=== PATIENT | female | born 1995 | race Caucasian/White ===

== ENCOUNTER → 2016-06-30 | Outpatient (CLI) | payer BC, MEDICAID ==
[~2016-06-30] MED LIST: ACET50TA PO; IBUP80TA PO; PRENTAB9 PO; ZANTTAB PO
--- NOTE | 2016-06-30 16:15 | REP ---
Bilateral inguinal soft-tissue ultrasound: History: Right inguinal pain. Right inguinal hernia suspected on clinical exam. Findings: Scanning of the inguinal canals is performed bilaterally with and without Valsalva. No inguinal hernias seen on either side by ultrasound. There are normal-appearing inguinal lymph nodes bilaterally. The largest lymph node on the right measures 14 x 6 x 5 mm. That on the left measures 14 x 7 x 7 mm. Normal right ovary is visible measuring 2.6 x 2.6 x 2.4 cm. Impression: No hernia, cyst or mass seen. Signed by Andrea Felipe MD 06/30/2016 04:35 P
== END ==
LOC: M RAD 14:36
PROVIDERS: ATTEND Physician Assistant
DX: M25.851 Other specified joint disorders, right hip (principal)

== ENCOUNTER → 2016-08-29 | Outpatient (CLI) | payer BC, MEDICAID ==
[~2016-08-29] MED LIST changes: +GASTROGRAFIN SOLUTION 30ML (Q9963) As Ordered ONE; +ISOVUE-370 76% 100ML VIAL (Q9967) As Ordered ONE
--- NOTE | 2016-08-29 16:07 | REP ---
CT abdomen and pelvis with IV and oral contrast: History: Intermittent severe right lower quadrant abdominal pain. Comparison CT study is from 02/09/2005. CT contrast dose: 100 mL of Isovue [address] findings: There is a pectus excavatum deformity seen. The pectus deformity is more prominent at the level of the right costal margin than at the level of the xyphoid or left costal margin. This asymmetry is somewhat more pronounced than on the 02/09/2005 prior study. The lung bases are clear. The liver and the spleen are normal in size and homogeneous in texture. The gallbladder and pancreas are unremarkable. No adrenal lesion is seen on either side. The kidneys enhance symmetrically and are morphologically intact. No retroperitoneal mass or adenopathy is seen. A normal appendix is seen in the right lower quadrant mid pelvis. A septate uterus is seen possibly bicornuate. No adnexal mass or free fluid is seen. A vaginal tampon is noted in place. Small and large intestinal bowel loops are unremarkable. Impression: Septate morphology to the uterus possibly bicornuate. Pectus excavatum. Otherwise negative CT study of the abdomen and pelvis with IV and oral contrast. Signed by Andrea Felipe MD 08/29/2016 05:19 P
== END ==
LOC: M RAD 12:32
PROVIDERS: ATTEND Physician Assistant
DX: R10.31 Right lower quadrant pain (principal)
CPT/HCPCS: 74177; Q9963; Q9967

== ENCOUNTER 2017-01-10 23:35 | Emergency (ER) | payer BC, MEDICAID ==
[~2017-01-10] VITALS: Ht 172.7 cm; Wt 67.3 kg
[~2017-01-10 23:35] MED LIST changes: -GASTROGRAFIN SOLUTION 30ML (Q9963) As Ordered ONE; -ISOVUE-370 76% 100ML VIAL (Q9967) As Ordered ONE
[2017-01-10 23:42] VITALS: BP 154/75
[2017-01-10] MEDS ORDERED: SERO1TAB PO (23:50)
[2017-01-10] MEDS ORDERED: ATIV1TAB10 PO (23:50)
[2017-01-10] MEDS ORDERED: MULT1CHW39 PO (23:50)
[2017-01-11] MEDS ORDERED: MORPHINE 10 MG/ML 1ML VIAL IM ONE (00:15)
[2017-01-11] MEDS ORDERED: OXYCODONE/APAP 5MG/325MG(BULK FOR ED) 1 TABLET PO ONE (01:30)
[2017-01-11] MEDS ORDERED: PERC5TAB12 PO (01:36)
--- NOTE | 2017-01-11 21:40 | REP ---
LEFT FOOT, AP AND LATERAL: AP and lateral views of the left foot are performed. There is a nondisplaced transverse fracture at the base of the 5th metatarsal. No other acute fracture or dislocation is seen. IMPRESSION: Nondisplaced fracture, base of 5th metatarsal. Signed by Inocencio Pickett MD 01/12/2017 01:09 P
--- NOTE | 2017-01-11 21:41 | REP ---
LEFT ANKLE: AP and lateral views of the left ankle are performed. There is a nondisplaced fracture at the base of the 5th metatarsal. No other acute fracture or dislocation is seen. IMPRESSION: Nondisplaced fracture base of the 5th metatarsal. Signed by Inocencio Pickett MD 01/12/2017 01:09 P
== END 2017-01-11 01:53 | disposition home or self-care (01) ==
LOC: M ED 23:35
DX: S92.355A Nondisplaced fracture of fifth metatarsal bone, left foot, initial encounter for closed fracture (principal); X50.1XXA Overexertion from prolonged static or awkward postures, initial encounter; Y92.9 Unspecified place or not applicable; Y93.89 Activity, other specified; Y99.9 Unspecified external cause status; Z79.899 Other long term (current) drug therapy

== ENCOUNTER → 2018-01-26 | Outpatient (CLI) | payer BC, MEDICAID ==
[2018-01-26 13:47] LABS: HCG, SERUM QUANTITATIVE 1584 MIU/ML
== END ==
LOC: M SMT 10:42
DX: N91.1 Secondary amenorrhea (principal)
CPT/HCPCS: 84702

== ENCOUNTER → 2018-01-28 | Outpatient (CLI) | payer BC, MEDICAID ==
[2018-01-29 08:30] LABS: HCG, SERUM QUANTITATIVE 3984 MIU/ML
== END ==
LOC: M WUC 11:13
DX: N91.1 Secondary amenorrhea (principal)
CPT/HCPCS: 84702

== ENCOUNTER 2018-02-21 19:18 | Emergency (ER) | payer BC, MEDICAID ==
[2018-02-21] MEDS: NS 1,000 ML IV (20:22)
[2018-02-21] MEDS: MORPHINE 2 MG/ML 1ML SYRINGE (J2270) IV (20:23)
[2018-02-21 20:38] LABS: BASO % 0.3 % (0.0-1.0); EOS # 0.2 10^3/uL (0.0-0.50); EOS % 1.8 % (0.0-3.0); HEMATOCRIT 36.6 % (36.0-47.0); HEMOGLOBIN 12.3 g/dl (12.0-15.5); IMMATURE GRANULOCYTE % 0.3 % (0-3.0); LYMPH # 2.5 10^3/uL (1.5-6.5); LYMPH % 25.9 % (24.0-44.0); MEAN CORPUSCULAR HEMOGLOBIN 29.7 pg (27.0-33.0); MEAN CORPUSCULAR HGB CONC 33.6 g/dl (32.0-36.5); MEAN CORPUSCULAR VOLUME 88.4 fl (80.0-96.0); MONO # 0.5 10^3/uL (0.0-0.8); MONO % 5.1 % (0.0-5.0); NEUTROPHILS # 6.4 10^3/uL (1.8-7.7); NEUTROPHILS % 66.6 % (36.0-66.0); PLATELET COUNT, AUTOMATED 253 10^3/uL (150-450); RED BLOOD COUNT 4.14 10^6/uL (4.00-5.40); RED CELL DISTRIBUTION WIDTH 13.8 % (11.5-14.5); WHITE BLOOD COUNT 9.6 10^3/uL (4.0-10.0)
[2018-02-21 21:06] LABS: ALBUMIN 3.6 GM/DL (3.2-5.2); ALBUMIN/GLOBULIN RATIO 0.95 (1.00-1.93); ALKALINE PHOSPHATASE 55 U/L (45-117); ALT/SGPT 17 U/L (12-78); AMYLASE 76 U/L (25-115); AST/SGOT 10 U/L (7-37); BILIRUBIN,DIRECT 0.1 MG/DL (0.0-0.2); BILIRUBIN,TOTAL 0.2 MG/DL (0.2-1.0); LIPASE 175 U/L (73-393); TOTAL PROTEIN 7.4 GM/DL (6.4-8.2)
[2018-02-21 21:19] LABS: ANION GAP 9 MEQ/L (8-16); BLOOD UREA NITROGEN 7 MG/DL (7-18); CALCIUM LEVEL 8.7 MG/DL (8.5-10.1); CARBON DIOXIDE LEVEL 25 MEQ/L (21-32); CHLORIDE LEVEL 108 MEQ/L (98-107); CREATININE FOR GFR 0.55 MG/DL (0.55-1.30); GLOMERULAR FILTRATION RATE > 60.0 (>60); GLUCOSE, FASTING 88 MG/DL (70-100); HCG, SERUM QUANTITATIVE 160073 MIU/ML; POTASSIUM SERUM 3.7 MEQ/L (3.5-5.1); SODIUM LEVEL 142 MEQ/L (136-145)
[2018-02-21 22:04] LABS: AMORPHOUS SEDIMENT RFX SMALL (NEGATIVE); KETONE, URINE AUTO RFX NEGATIVE (NEGATIVE); LEUKOCYTE ESTERASE UR AUTO RFX NEGATIVE (NEGATIVE); NITRITE, URINE AUTO RFX NEGATIVE (NEGATIVE); RBC, URINE AUTO RFX 2 /HPF (0-3); SPECIFIC GRAVITY UR AUTO RFX 1.012 (1.002-1.035); SQUAM EPITHELIAL CELL UR AURFX 1 /HPF (0-6); WBC, URINE AUTO RFX 0 /HPF (0-3)
[2018-02-21] MEDS: ACETAMINOPHEN 325 MG TAB PO (22:45)
[2018-02-21] MEDS: PROMETHAZINE 25 MG TAB PO (22:45)
== END 2018-02-21 22:53 | disposition home or self-care (01) ==
LOC: M ED 19:18
DX: O26.891 Other specified pregnancy related conditions, first trimester (principal); Z3A.01 Less than 8 weeks gestation of pregnancy
CPT/HCPCS: J2270

== ENCOUNTER → 2018-02-24 | Outpatient (CLI) | payer BC, MEDICAID ==
[2018-02-24 17:34] LABS: BASO % 0.1 % (0.0-1.0); EOS # 0.2 10^3/uL (0.0-0.50); EOS % 1.9 % (0.0-3.0); HEMATOCRIT 36.7 % (36.0-47.0); HEMOGLOBIN 12.2 g/dl (12.0-15.5); IMMATURE GRANULOCYTE % 0.4 % (0-3.0); LYMPH # 2.1 10^3/uL (1.5-6.5); LYMPH % 25.5 % (24.0-44.0); MEAN CORPUSCULAR HEMOGLOBIN 29.9 pg (27.0-33.0); MEAN CORPUSCULAR HGB CONC 33.2 g/dl (32.0-36.5); MONO # 0.5 10^3/uL (0.0-0.8); MONO % 6.1 % (0.0-5.0); NEUTROPHILS # 5.3 10^3/uL (1.8-7.7); PLATELET COUNT, AUTOMATED 268 10^3/uL (150-450); RED BLOOD COUNT 4.08 10^6/uL (4.00-5.40); RED CELL DISTRIBUTION WIDTH 13.9 % (11.5-14.5)
[2018-02-24 18:30] LABS: CHLAMYDIA DNA AMPLIFICATION NEGATIVE (NEGATIVE); GC DNA AMPLIFICATION NEGATIVE (NEGATIVE)
[2018-02-26 13:51] LABS: RUBELLA IgG QUALITATIVE IMMUNE (IMMUNE)
[2018-02-26 13:56] LABS: HBsAg Prenatal NEGATIVE (NEGATIVE)
[2018-02-26 14:21] LABS: HEPATITIS C VIRUS ABY INDEX 0.1 INDEX (<0.8)
[2018-02-26 14:21] LABS: HIV 1&2 SCREEN CENTAUR NEGATIVE (NEGATIVE)
== END ==
LOC: M WUC 14:50
DX: Z34.81 Encounter for supervision of other normal pregnancy, first trimester (principal); Z3A.09 9 weeks gestation of pregnancy; Z36.89 Encounter for other specified antenatal screening
CPT/HCPCS: 86762

== ENCOUNTER → 2018-03-02 | Outpatient (CLI) | payer BC, MEDICAID | LOC: M SMT 10:17 | DX: Z34.81 Encounter for supervision of other normal pregnancy, first trimester (principal); Z13.79 Encounter for other screening for genetic and chromosomal anomalies | CPT/HCPCS: 36415 ==

== ENCOUNTER → 2018-04-28 | Outpatient (CLI) | payer BC, OTHER, MEDICAID | LOC: M RAD 12:11 | DX: O34.02 Maternal care for unspecified congenital malformation of uterus, second trimester (principal); Z36.89 Encounter for other specified antenatal screening; Z3A.18 18 weeks gestation of pregnancy | CPT/HCPCS: 76811 ==

== ENCOUNTER → 2018-05-24 | Outpatient (CLI) | payer BC, OTHER | LOC: M RAD 12:19 | DX: O34.02 Maternal care for unspecified congenital malformation of uterus, second trimester (principal); Q51.3 Bicornate uterus; Z3A.21 21 weeks gestation of pregnancy | CPT/HCPCS: 76816 ==

== ENCOUNTER → 2018-06-30 | Outpatient (CLI) | payer BC, OTHER ==
[~2018-06-30] MED LIST changes: +ATIV1TAB10 PO; +MULT1CHW39 PO; +PERC5TAB12 PO; +SERO1TAB PO
[2018-06-30 13:23] LABS: HEMOGLOBIN 11.8 g/dl (12.0-15.5); MEAN CORPUSCULAR HGB CONC 33.7 g/dl (32.0-36.5); MEAN CORPUSCULAR VOLUME 94.9 fl (80.0-96.0); PLATELET COUNT, AUTOMATED 234 10^3/uL (150-450); RED BLOOD COUNT 3.69 10^6/uL (4.00-5.40); WHITE BLOOD COUNT 7.7 10^3/uL (4.0-10.0)
== END ==
LOC: M SMT 10:12
PROVIDERS: ATTEND Advanced Practice Midwife
DX: O34.02 Maternal care for unspecified congenital malformation of uterus, second trimester (principal)

== ENCOUNTER → 2018-09-03 | Outpatient (REF) | payer BC, OTHER | LOC: M LAB REF 17:12 | PROVIDERS: ATTEND Advanced Practice Midwife | DX: O99.89 Other specified diseases and conditions complicating pregnancy, childbirth and the puerperium (principal); Z3A.00 Weeks of gestation of pregnancy not specified ==

== ENCOUNTER 2018-09-14 11:29 | Inpatient (IN) | payer BC, OTHER ==
[2018-09-14] VITALS (60 sets, daily range): BP systolic 116–203; BP diastolic 56–139
[~2018-09-14 11:29] MED LIST changes: -ACET50TA PO; +MAPA500T17 PO
[2018-09-14] MEDS ORDERED: MAG Sulf (L&D) 4 GM/100 ML 4 GM in APPROPRIATE DILUENT 1 EA IV ONE (11:45)
[2018-09-14] MEDS ORDERED: OXYTOCIN DRIP 30 UNITS in APPROPRIATE DILUENT 1 EA IV SCH ×2 (11:45→23:42)
[2018-09-14] MEDS ORDERED: MAG Sulf (OBGYN) 20GM/500ML 20,000 MG in APPROPRIATE DILUENT 1 EA IV SCH (12:00)
[2018-09-14] MEDS ORDERED: ACETAMINOPHEN TAB 650MG DOSE (2X325MG) PO PRN (12:30)
[2018-09-14] MEDS ORDERED: LR 1,000 ML IV SCH (12:45)
[2018-09-14 12:49] LABS: HEMATOCRIT 35.3 % (36.0-47.0); MEAN CORPUSCULAR HEMOGLOBIN 30.5 pg (27.0-33.0); MEAN CORPUSCULAR VOLUME 89.8 fl (80.0-96.0); PLATELET COUNT, AUTOMATED 236 10^3/uL (150-450); RED BLOOD COUNT 3.93 10^6/uL (4.00-5.40); WHITE BLOOD COUNT 5.3 10^3/uL (4.0-10.0)
[2018-09-14 13:14] LABS: TOTAL PROTEIN,RANDOM URINE 99.2 MG/DL (0.0-12.0)
[2018-09-14 13:14] LABS: ALT/SGPT 16 U/L (12-78); BILIRUBIN,TOTAL 0.3 MG/DL (0.2-1.0); CREATININE FOR GFR 0.51 MG/DL (0.55-1.30); GLOMERULAR FILTRATION RATE > 60.0 (>60); LDH LACTATE DEHYDROGENASE 236 U/L (84-246); URIC ACID 4.3 MG/DL (2.6-6.0)
--- NOTE | 2018-09-14 13:14 | HPE ---
DATE OF ADMISSION: 09/14/2018 Nusrat is a 1, para 1-0-1-1, at 38 weeks gestation with an expected date of confinement (EDC) of 09/28/2017 based on first trimester ultrasound. She presents to labor and delivery today after routine appointment with severe range pressures noted at that appointment. She reported a headache that has been times two days, not resolved by usual [id number] medications. She does report some blurry vision on and off, currently none. She reports some minimal cramping. Denies vaginal bleeding and leakage of fluid. The fetus has been active. care was initiated at [facility] in the first trimester. Her course was complicated by known bicornuate uterus and a history of anxiety and now recent onset of hypertension today. OBSTETRICAL HISTORY: May 2012 - 37 weeks, spontaneous vaginal delivery, 7 pound 5 ounce female. January 2013 - spontaneous miscarriage. OBSTETRIC LABS: O positive. Antibody screen negative. Rubella immune. VDRL nonreactive. Urine culture no growth. Hepatitis B surface antigen negative. HIV negative. Hepatitis C antibody nonreactive. Gonorrhea and chlamydia negative. She did have a cell free DNA testing and noted to be low risk for aneuploidy with a male fetus. Her glucose test was normal at 94. Her GBS is negative. PAST MEDICAL HISTORY: Anxiety, left cystic breast, childhood varicella. SURGERIES: Dilation and curettage (D and C) 2012 following her miscarriage. FAMILY HISTORY: Anxiety and depression. SOCIAL HISTORY: The patient is single, however, the father of the baby is at bedside and supportive as well as several family members. She is a nonsmoker. Denies alcohol and drug use. No history of any sexually transmitted infections. Denies history of abuse - physical, sexual and emotional. ALLERGIES: No known drug allergies. CURRENT MEDICATIONS: Include vitamins, Zantac [id number], Ambien for sleep and Fioricet for headaches. OBJECTIVE: In the office, her blood pressure was in the severe range 168/102. Blood pressure since arrival has been still elevated, but more reasonable at 143/82. Temperature is 97.9, pulse 100 and respirations are 18. She is alert and oriented times three. heart rate is 160 with moderate variability, positive accelerations, no decelerations. Contractions every 2-3 minutes. They are mild. Sterile Vaginal Exam: Performed in the office, 2-3 cm dilated, 80% effaced, minus two station, mid position, positive bloody show. Her abdomen is gravid, cephalic presentation. Estimated weight 7-1/2 pounds. ASSESSMENT: Intrauterine at 38 weeks. heart rate category one. Severe range hypertension. Headache. PLAN: Admit the patient to labor and delivery for induction of labor. Labs - CBC, pre-eclamptic profile, type and screen, spot urine. Start magnesium sulfate 4 grams loading dose and then 2 grams per hour. Plan to keep IV fluids at 125 mL total. Clear liquid diet at this time. Continuous monitoring. IV Pitocin for labor induction. I did review risks and benefits to induction of labor including intolerance to labor, increased risk of and reviewed risks and benefits and expected management. The patient and her family have had all their questions answered and do desire induction of labor. The patient will have an epidural when she is uncomfortable. The plan is for assisted rupture of membranes when she is in active labor. Dr. Polanco is aware of the patient's status and arrival to labor and delivery and is consultation for this plan. I do anticipate labor and a spontaneous vaginal delivery.
[2018-09-14] MEDS ORDERED: FENTANYL 2MCG/ML ROPIVACAINE 0.2% IN 0.9% NACL 100ML IVBAG As Ordered ONE (17:45)
[2018-09-14] MEDS ORDERED: EPIDURAL COMMENT XX SCH (18:45)
[2018-09-14] MEDS ORDERED: EPIDURAL/PCA KEYS XX PRN (18:45)
[2018-09-14] MEDS ORDERED: FENTANYL/ROPIVACAINE/NACL BAG 100 ML EPIDURAL SCH (18:45)
[2018-09-14] MEDS ORDERED: NALOXONE INJ 0.4 MG/1 ML VIAL (J2310) IV PRN (18:45)
[2018-09-14] MEDS ORDERED: ePHEDrine SULFATE 25 MG/5 ML(5MG/ML) SYRINGE IV PRN (18:45)
[2018-09-14] MEDS ORDERED: ONDANSETRON 4MG/2ML VIAL (J2405) IV PRN (18:45)
[2018-09-14] MEDS ORDERED: REFRIGERATOR IV KEYS XX PRN (18:45)
[2018-09-14] MEDS ORDERED: diphenhydrAMINE INJ 50MG/ML VIAL (J1200) IV PRN (18:45)
[2018-09-14] MEDS ORDERED: RANI1TAB6 PO (19:11)
[2018-09-14] MEDS ORDERED: FIOR1CAP PO (19:11)
[2018-09-14] MEDS: FAMOTIDINE 20 MG TAB PO SCH (19:32)
[2018-09-14] MEDS ORDERED: CALCIUM CARBONATE 500 MG CHEW U/D PO PRN (20:45)
[2018-09-14] MEDS ORDERED: DOCUSATE SODIUM 100 MG CAP PO PRN (23:45)
[2018-09-14] MEDS ORDERED: MEASLES,MUMPS,RUBELLA VACCINE INJ (MMR-II) (90707) SC SCH (23:45)
[2018-09-14] MEDS ORDERED: RHOGAM 300 MCG (1500 IU) INJ (J2790) IM SCH (23:45)
[2018-09-14] MEDS ORDERED: METHYLERGONOVINE MALEATE 0.2 MG TAB PO PRN (23:45)
[2018-09-15] VITALS (13 sets, daily range): BP systolic 109–150; BP diastolic 53–74
[2018-09-15] MEDS: IBUPROFEN 800 MG TAB PO PRN ×2 (00:02→07:44)
--- NOTE | 2018-09-15 06:58 | DN ---
DATE OF : 09/14/2018 Nusrat is a 22-year-old, 3, para 2-0-1-2 now, who was admitted to labor and delivery for preeclampsia. Magnesium sulfate and IV Pitocin was started. Labor did ensue. She used an epidural for her labor coping. She progressed to full dilation at 2244. She pushed to a normal spontaneous vaginal delivery of a live male in occiput anterior (OA) position with restitution to right occiput transverse (ROT) position at 2253. There was a nuchal cord times one loose reduced manually at the time of delivery. Shoulders and corpus delivered spontaneously. The male was placed on the maternal abdomen crying and active. Mouth and nares were bulb suctioned. The cord was clamped times two and cut by the father of the baby under my direction. A spontaneous expulsion of an intact placenta with three-vessel cord by Felipe mechanism was at 2309. Uterine hemostasis achieved with IV Pitocin rapid infusion and uterine fundal massage. Estimated blood loss 300 mL. Perineum and vagina inspected and noted have a first degree midline laceration. The laceration was repaired with #3-0 Rapide in the usual fashion. The male weighed 8 pounds 2 ounces, 3690 grams, with Apgars 9 and 9. Mom is going to bottle feed her son and the family have named him Gerardo. At the close of delivery, lap counts, needle counts and instrument counts were correct and verified.
[2018-09-15] MEDS: FAMOTIDINE 20 MG TAB PO SCH ×2 (07:43→20:27)
[2018-09-15] MEDS ORDERED: ACETAMINOPHEN 500 MG TAB PO PRN (07:45)
[2018-09-15] MEDS: PRENATAL VITAMINS CHEWABLE TABLET PO SCH (09:28)
[2018-09-15] MEDS ORDERED: SLF 3 ML SYR IV PRN (10:15)
[2018-09-15] MEDS: SLF 3 ML SYR IV SCH ×2 (14:53→20:33)
[2018-09-16] MEDS: DIBUCAINE 1% OINTMENT 30GM TOP PRN ×2 (00:44→11:42)
[2018-09-16] MEDS: IBUPROFEN 800 MG TAB PO PRN ×2 (00:44→08:46)
[2018-09-16 06:00] VITALS: BP 113/59
[2018-09-16] MEDS: SLF 3 ML SYR IV SCH (06:00)
[2018-09-16] MEDS: FAMOTIDINE 20 MG TAB PO SCH (06:21)
[2018-09-16] MEDS ORDERED: IBUP-1114 PO (08:19)
[2018-09-16] MEDS ORDERED: MAPA500T2 PO (08:20)
[2018-09-16] MEDS: PRENATAL VITAMINS CHEWABLE TABLET PO SCH (08:45)
== END 2018-09-16 13:20 | disposition home or self-care (01) | DRG 560 ==
LOC: M LDI 11:29 → M OBS 09-15 11:26
PROVIDERS: ADMIT Advanced Practice Midwife; ATTEND Advanced Practice Midwife
PROC: 10E0XZZ Delivery of Products of Conception, External Approach (ICD-10-PCS; principal; 2018-09-14)
PROC: 0HQ9XZZ Repair Perineum Skin, External Approach (ICD-10-PCS; 2018-09-14)
PROC: 10907ZC Drainage of Amniotic Fluid, Therapeutic from Products of Conception, Via Natural or Artificial Opening (ICD-10-PCS; 2018-09-14)
PROC: 3E033VJ Introduction of Other Hormone into Peripheral Vein, Percutaneous Approach (ICD-10-PCS; 2018-09-14)
DX: O14.14 Severe pre-eclampsia complicating childbirth (principal); Z3A.38 38 weeks gestation of pregnancy; O69.81X0 Labor and delivery complicated by cord around neck, without compression, not applicable or unspecified; O70.0 First degree perineal laceration during delivery; Z37.0 Single live birth

== ENCOUNTER → 2019-02-22 | Outpatient (REF) | payer BC, OTHER ==
[~2019-02-22] MED LIST changes: +FIOR1CAP PO; +IBUP-1114 PO; +MAPA500T2 PO; -MULT1CHW39 PO; +MULT200T7 PO; +RANI-356 PO
== END ==
LOC: M LAB REF 13:49
PROVIDERS: ATTEND Advanced Practice Midwife
DX: Z12.4 Encounter for screening for malignant neoplasm of cervix (principal)

== ENCOUNTER → 2019-04-05 | Outpatient (REF) | payer BC, OTHER | LOC: M LAB REF 17:14 | PROVIDERS: ATTEND Advanced Practice Midwife | DX: R87.615 Unsatisfactory cytologic smear of cervix (principal) ==

== ENCOUNTER → 2020-02-21 | Outpatient (CLI) | payer BC, OTHER ==
[~2020-02-21] MED LIST changes: -RANI-356 PO; +RANI-397 PO
--- NOTE | 2020-03-09 14:56 | REP ---
THORACIC SPINE SERIES: CLINICAL: Back pain. COMPARISON: 11/29/18 TECHNIQUE: AP, lateral, swimmer's views of the thoracic spine. FINDINGS: Alignment and kyphosis is maintained. Vertebral bodies are intact. No acute fracture/compression injury or subluxation. Paravertebral soft tissues are normal. IMPRESSION: Normal thoracic spine radiographs. MTDD
--- NOTE | 2020-03-09 14:57 | REP ---
LUMBOSACRAL SERIES: CLINICAL: Back pain. TECHNIQUE: AP, lateral, bilateral oblique and coned down views of the lumbosacral spine. COMPARISON: 11/29/18 FINDINGS: Alignment and lordosis maintained. Vertebral bodies intact. No acute fracture/compression injury or subluxation. No spondylolysis or spondylolisthesis. IMPRESSION: Normal age appropriate lumbosacral spine radiographs. [facility]
== END ==
LOC: M WUC 10:05
PROVIDERS: ATTEND Physician Assistant
DX: M54.5 Low back pain (principal); M54.6 Pain in thoracic spine

== ENCOUNTER → 2020-04-11 | Outpatient (CLI) | payer OTHER ==
--- NOTE | 2020-04-11 12:45 | REPVR ---
PROCEDURE INFORMATION: Exam: MR Lumbar Spine Without Contrast. Exam date and time: 04/11/2020 11:37 AM Age: 24 years old Clinical indication: Low back pain; Additional info: Ddd lumbar region TECHNIQUE: Imaging protocol: Multiplanar magnetic resonance images of the lumbar spine without intravenous contrast. COMPARISON: CR SPINE LS COMPLETE 02/21/2020 10:19 AM FINDINGS: Vertebrae: There is no fracture or listhesis. Marrow signal is within normal limits. Spinal cord: Normal signal. No cord compression. L1-L2: No significant disc disease. No significant spinal canal stenosis. No neural foraminal stenosis. L2-L3: No significant disc disease. No significant spinal canal stenosis. No neural foraminal stenosis. L3-L4: There is shallow disc bulging. There is mild facet hypertrophy. The spinal canal and neural foramina are patent. L4-L5: There is shallow disc bulging. There is mild facet hypertrophy. The spinal canal and neural foramina are patent. L5-S1: There is shallow disc bulging. There is mild facet hypertrophy. The spinal canal and neural foramina are patent. Soft tissues: Unremarkable. IMPRESSION: Mild degenerative disc disease and spondylosis without canal or neural foraminal compromise. Electronically signed by: Opal Munguia On 04/11/2020 12:45:49 PM
== END ==
LOC: M RAD 10:30
PROVIDERS: ATTEND Physician Assistant
DX: M51.37 Other intervertebral disc degeneration, lumbosacral region (principal)

== ENCOUNTER → 2020-08-08 | Outpatient (CLI) | payer OTHER ==
--- NOTE | 2020-08-09 04:12 | REP ---
INDICATION: PAIN COMPARISON: None. TECHNIQUE: AP, lateral, bilateral oblique views right foot. FINDINGS: There is no definite evidence for acute fracture or dislocation. Surrounding soft tissues are unremarkable. No subcutaneous emphysema or radiodense foreign body. Oblique and lateral views cannot distinguish between bipartite sesamoid bone versus nondisplaced fracture of the sesamoid underlying the 1st metatarsal head. 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 IMPRESSION: No definite acute fracture. As above. <Electronically signed by Felix Urias > 08/09/20 [id number]
== END ==
LOC: M WUC 14:28
PROVIDERS: ATTEND Physician Assistant
DX: M79.671 Pain in right foot (principal)

== ENCOUNTER → 2020-10-26 | Outpatient (REF) | payer BC | LOC: M SFHCWAGY 10:06 | PROVIDERS: ATTEND Advanced Practice Midwife | DX: Z12.4 Encounter for screening for malignant neoplasm of cervix (principal); Z77.9 Other contact with and (suspected) exposures hazardous to health ==

== ENCOUNTER → 2021-01-14 | Outpatient (CLI) | payer OTHER ==
--- NOTE | 2021-01-14 12:25 | REP ---
INDICATION: SPRAIN. COMPARISON: Comparison portable chest x-ray February 09, 2005.. TECHNIQUE: Five views including PA chest. FINDINGS: PA chest radiograph shows no evidence of pneumothorax or hydrothorax. Mediastinum is not widened. Heart size is normal. Pulmonary vasculature is not increased. Multiple views of the left ribcage show no evidence of rib fracture or bony destructive lesion. IMPRESSION: Negative left rib series. <Electronically signed by Bebeto Felipe > 01/14/21 [id number]
== END ==
LOC: M WUC 10:37
PROVIDERS: ATTEND Physician Assistant
DX: S23.41XA Sprain of ribs, initial encounter (principal); X58.XXXA Exposure to other specified factors, initial encounter; Y92.89 Other specified places as the place of occurrence of the external cause; Y93.9 Activity, unspecified; Y99.9 Unspecified external cause status

== ENCOUNTER → 2022-03-22 | Outpatient (CLI) | payer OTHER | LOC: M RAD 15:40 | PROVIDERS: ATTEND Physician Assistant | DX: R06.02 Shortness of breath (principal) ==

== ENCOUNTER → 2023-07-10 | Outpatient (REF) | payer OTHER | LOC: M SFHCWAGY 17:57 | PROVIDERS: ATTEND Advanced Practice Midwife | DX: Z12.4 Encounter for screening for malignant neoplasm of cervix (principal) ==

== ENCOUNTER → 2023-07-21 | Outpatient (CLI) | payer OTHER ==
[2023-07-21 13:25] LABS: URINE PREG TEST NEGATIVE (NEGATIVE)
[2023-07-21 14:28] LABS: HIV 1&2 SCREEN NEGATIVE (NEGATIVE)
[2023-07-21 14:36] LABS: HEPATITIS C VIRUS ABY INDEX < 0.02 INDEX (<0.8)
== END ==
LOC: M WUC 09:37
PROVIDERS: ATTEND Advanced Practice Midwife
DX: Z01.419 Encounter for gynecological examination (general) (routine) without abnormal findings (principal); Z11.3 Encounter for screening for infections with a predominantly sexual mode of transmission

== ENCOUNTER → 2023-10-21 | Outpatient (CLI) | payer OTHER ==
[2023-10-21 13:04] LABS: HEMATOCRIT 36.7 % (36.0-47.0); HEMOGLOBIN 11.9 g/dl (12.0-15.5); MEAN CORPUSCULAR HEMOGLOBIN 29.9 pg (27.0-33.0); MEAN CORPUSCULAR HGB CONC 32.4 g/dl (32.0-36.5); MEAN CORPUSCULAR VOLUME 92.2 fl (80.0-96.0); PLATELET COUNT, AUTOMATED 342 10^3/uL (150-450); RED BLOOD COUNT 3.98 10^6/uL (4.00-5.40)
[2023-10-21 13:27] LABS: ALBUMIN 2.8 G/DL (3.2-5.2); ALKALINE PHOSPHATASE 53 U/L (46-116); ALT/SGPT 17 U/L (7.0-40); AST/SGOT 15 U/L (<34); BILIRUBIN,TOTAL 0.3 MG/DL (0.3-1.2); BLOOD UREA NITROGEN 13 MG/DL (9-23); CALCIUM LEVEL 8.6 MG/DL (8.5-10.1); CARBON DIOXIDE LEVEL 28 MMOL/L (20-31); CHLORIDE LEVEL 106 MMOL/L (98-107); CREATININE FOR GFR 0.78 MG/DL (0.55-1.30); GLOMERULAR FILTRATION RATE > 60.0 (>60); GLUCOSE, FASTING 90 MG/DL (60-100); POTASSIUM SERUM 3.6 MMOL/L (3.5-5.1); SODIUM LEVEL 142 MMOL/L (136-145)
[2023-10-22 07:10] LABS: WHITE BLOOD COUNT 8.3 10^3/uL (4.0-10.0)
== END ==
LOC: M WUC 09:11
PROVIDERS: ATTEND Physician Assistant
DX: R06.02 Shortness of breath (principal); U07.0 Vaping-related disorder; F90.0 Attention-deficit hyperactivity disorder, predominantly inattentive type

== ENCOUNTER → 2024-05-10 | Outpatient (CLI) | payer OTHER ==
[~2024-05-10] MED LIST changes: -MULT200T7 PO; +MULT200T9 PO
== END ==
LOC: M WUC 13:14
PROVIDERS: ATTEND Nurse Practitioner Family
DX: R05.9 Cough, unspecified (principal)

== ENCOUNTER → 2024-12-30 | Outpatient (REF) | payer OTHER ==
[2024-12-30 18:07] LABS: Trichomonas vaginalis (AMP) NOT DETECTED (NEGATIVE)
[2024-12-30 18:31] LABS: GC DNA AMPLIFICATION NEGATIVE (NEGATIVE)
[2025-01-03 14:02] LABS: HPV APTIMA Detected (Not Detected)
== END ==
LOC: M SFHCWAGY 15:18
PROVIDERS: ATTEND Advanced Practice Midwife
DX: Z12.4 Encounter for screening for malignant neoplasm of cervix (principal); R87.612 Low grade squamous intraepithelial lesion on cytologic smear of cervix (LGSIL); R87.5 Abnormal microbiological findings in specimens from female genital organs

== ENCOUNTER → 2025-01-27 | Outpatient (CLI) | payer OTHER | LOC: M PLAIMG 07:21 | PROVIDERS: ATTEND Physical Medicine & Rehabilitation | DX: M54.2 Cervicalgia (principal); M54.6 Pain in thoracic spine ==

== ENCOUNTER → 2025-04-20 | Outpatient (CLI) | payer OTHER ==
[2025-04-20 18:44] LABS: ALT/SGPT 13 U/L (7.0-40); AST/SGOT 16 U/L (<34); CALCIUM LEVEL 8.6 MG/DL (8.5-10.1); CARBON DIOXIDE LEVEL 26 MMOL/L (20-31); CHLORIDE LEVEL 109 MMOL/L (98-107); CREATININE FOR GFR 0.68 MG/DL (0.55-1.30); GLOMERULAR FILTRATION RATE > 90.0 (>60); POTASSIUM SERUM 4.4 MMOL/L (3.5-5.1); SODIUM LEVEL 143 MMOL/L (136-145)
[2025-04-20 18:45] LABS: PLATELET COUNT, AUTOMATED 351 10^3/uL (150-450)
== END ==
LOC: M WUC 15:28
PROVIDERS: ATTEND Physician Assistant
DX: E05.90 Thyrotoxicosis, unspecified without thyrotoxic crisis or storm (principal); J34.89 Other specified disorders of nose and nasal sinuses; K22.70 Barrett's esophagus without dysplasia

== ENCOUNTER → 2025-06-06 | Outpatient (CLI) | payer OTHER ==
[2025-06-06 19:37] LABS: Trichomonas vaginalis (AMP) NOT DETECTED (NEGATIVE)
[2025-06-06 19:43] LABS: HIV 1&2 SCREEN NEGATIVE (NEGATIVE)
[2025-06-06 19:52] LABS: HEPATITIS C VIRUS ABY INDEX 0.02 INDEX (<0.8)
[2025-06-06 20:00] LABS: GC DNA AMPLIFICATION NEGATIVE (NEGATIVE)
== END ==
LOC: M PLALAB 14:59
PROVIDERS: ATTEND Advanced Practice Midwife
DX: R35.0 Frequency of micturition (principal); Z11.3 Encounter for screening for infections with a predominantly sexual mode of transmission

== ENCOUNTER → 2025-06-06 | Outpatient (CLI) | payer OTHER | LOC: M WHC 15:10 | PROVIDERS: ATTEND Advanced Practice Midwife | DX: R10.20 Pelvic and perineal pain unspecified side (principal); Z53.9 Procedure and treatment not carried out, unspecified reason ==